=== PATIENT | male | born 1960 | race African-American/Black ===

== ENCOUNTER 2018-01-08 08:47 | Day surgery (SDC) | payer OTHER ==
[2018-01-08] VITALS (9 sets, daily range): BP systolic 134–157; BP diastolic 80–98
[~2018-01-08] VITALS: Ht 182.9 cm; Wt 108.9 kg
--- NOTE | 2018-01-08 07:08 | Pre-Procedure Note/Attestation ---
Pre-Procedure Note/Attestation Complete Prior to Procedure Planned Procedure: left Procedure Narrative: left knee scope, lateral meniscectomy, chondroplasty Indications for Procedure Pre-Operative Diagnosis: Left knee lateral meniscus tear Attestation I attest that I discussed the nature of the procedure; its benefits; risks and complications; and alternatives (and the risks and benefits of such alternatives ), prior to the procedure, with the patient (or the patient's legal treasury representative). I attest that, if there was a reasonable possibility of needing a blood transfusion, the patient (or the patient's legal treasury representative) was given the [facility] standardized written summary, pursuant to the [place] Blood Safety Act ([place] Health and Safety Code # 1645, as amended). I attest that I re-evaluated the patient just prior to the surgery and that there has been no change in the patient's H&P, except as documented below: NONE Addison Esposito MD Jan 08, 2018 07:08
[~2018-01-08 08:47] MED LIST: METFORMIN HCL850 M1 ORAL; ceFAZolin 1gm IVPB IVPB ONE; ceFAZolin sod 1 GM in D5W 55 ML IVP ONE; celeBREX 200mg Cap **SURGERY PATIENTS ONLY ORAL ONE; celeBREX 200mg Cap **SURGERY PATIENTS ONLY PO ONE; oxyCONTIN 20mg tab ORAL ONE
[2018-01-08] MEDS ORDERED: celeBREX 200mg Cap **SURGERY PATIENTS ONLY ORAL ONE (09:38)
[2018-01-08] MEDS ORDERED: HYDROmorphone 1mg/ml Carpuject SUBQ PRN (09:45)
[2018-01-08] MEDS ORDERED: D5 1/2NS 1,000 ML IV SCH (09:45)
[2018-01-08] MEDS ORDERED: Sodium Chloride 10ml vial INJ ONE (10:06)
[2018-01-08] MEDS ORDERED: Lidocaine 1% MPF 10mg/ml 5ml ONE (10:06)
[2018-01-08] MEDS ORDERED: LR 1000ml 1,000 ML IVLG SCH (10:08)
[2018-01-08] MEDS ORDERED: Ropivacaine 5mg/ml Vial 30ml INJ ONE (10:14)
[2018-01-08] MEDS ORDERED: LORazepam Inj 2mg/ml 1ml IV PRN (10:15)
[2018-01-08] MEDS ORDERED: Metoclopramide 10mg/2ml Inj IVP PRN (10:15)
[2018-01-08] MEDS ORDERED: Atropine Sulfate 0.4mg/ml inj IVP PRN (10:15)
[2018-01-08] MEDS ORDERED: Midazolam 2mg/2ml Inj IVP PRN (10:15)
[2018-01-08] MEDS ORDERED: Meperidine 50mg/ml Inj(FOR RIGORS ONLY) IVP PRN (10:15)
[2018-01-08] MEDS ORDERED: fentaNYL 100 mcg/2 mL IV PRN (10:15)
[2018-01-08] MEDS ORDERED: DiphenhydrAMINE 50mg/ml Inj IVP PRN (10:15)
[2018-01-08] MEDS ORDERED: Ketorolac 30mg Inj IV PRN ×2 (10:15)
--- NOTE | 2018-01-08 10:16 | Anethesia Preoperative Eval ---
Anesthesia Pre-op PMH/ROS General Date of Evaluation: Jan 08, 2018 Anesthesiologist: Broderick ASA Score: ASA 3 Mallampati Score Class I : Soft palate, uvula, fauces, pillars visible Class II: Soft palate, uvula, fauces visible Class III: Soft palate, base of uvula visible Class IV: Only hard plate visible Mallampati Classification: Class II Surgeon: Vaibhav Diagnosis: Left Knee Pain Surgical Procedure: Left Knee Athroscopy Anesthesia History: none Family History: no anesthesia problems Allergies: Coded Allergies: OXYCODONE (Verified Allergy, Mild, 01/08/18) ITCHING Medications: see eMAR Patient NPO?: Yes Past Medical History Cardiovascular: Reports: HTN Other: obesity - BMI 35 PSxH Narrative: R Knee Arthroscopy, Left THR Anesthesia Pre-op Phys. Exam Physician Exam Last Vital Signs Date Time Temp Pulse Resp B/P (MAP) Pulse Ox O2 Delivery O2 Flow Rate FiO2 01/08/18 09:16 97.4 68 18 135/84 95 Room Air Constitutional: NAD Neurologic: CN 2-12 intact Cardiovascular: RRR Respiratory: CTA Gastrointestinal: S/NT/ND Airway Exam Mallampati Score: Class II MO: full ROM: full Teeth: intact Anesthesia Pre-op A/P Risk Assessment & Plan Assessment: ASA 3 Plan: GA, SED Status Change Before Surgery: No Pre-Antibiotics Dru Gram Ancef IV Given Within 1 Hr of Incision: Yes Tony Villafana MD Jan 08, 2018 10:16
--- NOTE | 2018-01-08 10:17 | Immediate Post-Op Evaluation ---
Immediate Post-Op Evalulation Immediate Post-Op Evalulation Procedure: Left Knee Arthroscopy Date of Evaluation: Jan 08, 2018 Time of Evaluation: 12:05 IV Fluids: 700 LR Blood Products: 0 Estimated Blood Loss: 25 Urinary Output: 0 Blood Pressure Systolic: 157 Blood Pressure Diastolic: 91 Pulse Rate: 64 Respiratory Rate: 16 O2 Sat by Pulse Oximetry: 100 Temperature (Fahrenheit): 98.9 Pain Score (1-10): 2 Nausea: No Vomiting: No Complications 0 Patient Status: awake, reacts, patent, none Hydration Status: adequate Dru Gram Ancef IV Given Within 1 Hr of Incision: Yes Time Given: 10:41 Tony Villafana MD Jan 08, 2018 10:17
[2018-01-08] MEDS ORDERED: Midazolam 2mg/2ml Inj ONE (10:21)
[2018-01-08] MEDS ORDERED: fentaNYL 100 mcg/2 mL IV ONE (10:21)
[2018-01-08] MEDS ORDERED: NS Irrig 4000ml IRRIG ONE (10:30)
[2018-01-08] MEDS ORDERED: LR 1000ml ONE (10:30)
[2018-01-08] MEDS ORDERED: Acetaminophen (Non formulary) 100 ML IV ONE (10:30)
[2018-01-08] MEDS ORDERED: Propofol 200mg/20ml IV ONE (10:30)
--- NOTE | 2018-01-08 11:36 | Brief Operative Note ---
Immediate Post Operative Note Operative Note Chief Complaint: left knee pain Pre-op Diagnosis: left knee lateral meniscus tear Procedure: left knee scope, lateral meniscectom, chondroplasty Post-op Diagnosis: same as pre-op Findings: consistent w/pre-op dx studies Surgeon: md nadia [employer] Worker: nadeen douglass Anesthesiologist: md ej Anesthesia: general Specimen: none Complications: none Condition: stable Fluids: ns Estimated Blood Loss: minimal Drains: none Implant(s) used?: No Adriana Douglass Jan 08, 2018 11:35
--- NOTE | 2018-01-08 22:45 | Operative Note - Dictated ---
DATE OF OPERATION: 01/08/2018 PREOPERATIVE DIAGNOSES: 1. Left knee complex tear, lateral meniscus. 2. Left knee arthritis. POSTOPERATIVE DIAGNOSES: 1. Left knee large complex tear of the posterior horn and body of the lateral meniscus with a flip component. 2. Left knee significant femoral grade 4 chondral damage involving 3 x 4 cm area with unstable chondral flaps. The tibial side was intact. 3. Left knee trochlear chondral lesion measuring 2 x 3 cm central trochlear groove with unstable chondral flap. PROCEDURE: 1. Left knee arthroscopy and extensive intra-articular shaving. 2. Left knee partial lateral meniscectomy involving 35% posterior horn and body of the lateral meniscus. 3. Left knee patellofemoral as well as lateral femoral chondroplasty. SURGEON: Addison Esposito M.D. SPORTING GOODS SALES MANAGER: Adriana Delgado PA-C. Sustainability Coordinator was present during the actual operative portion of the case and was important and essential part of the operation. During the operation, the nurse practitioner physician assistant held and operated the arthroscopic camera for visualization, assisted by manipulating the leg to help with visualization, and helped with essential parts of the repair process as necessary such as operating surgical instruments under surgeon supervision, suture management, and wound closures. ANESTHESIOLOGIST: Tony Villafana M.D. ANESTHESIA: LMA anesthesia. TOURNIQUET TIME: 25 minutes. EBL: Minimal. COMPLICATIONS: None. SURGICAL INDICATION: The patient is a 57-year-old male who sustained the above injury to his knee. The patient was treated non-operative initially, but this did not alleviate the patients symptoms. Therefore, after discussing all non-surgical and surgical options, and discussing all foreseeable risk and benefits of surgery, the patient opted for surgical treatment as described above. PATIENT POSITIONING: Patient was brought to the operating room table and placed supine. All pressure points were well padded. General Anesthesia was induced and a well padded tourniquet was placed on the thigh. The lateral post was placed and positioned to allow for opening of the medial compartment of the knee without placing pressure over the fibular head. Patients entire leg was prepped and draped in the usual sterile fashion. Time out was performed and preop abx was given and after exsanguinating the lower extremity, the tourniquet was inflated to 275 mm of mercury. EXAMINATION OF THE KNEE UNDER ANESTHESIA: Before prepping and draping the knee and while the patient was relaxed under general anesthesia, the knee was examined for ROM, and anterior and posterior, medial and lateral, posterolateral, and posteromedial instability. Pivot shift testing was performed. There was no evidence of loss of motion or instability and the pivot shift testing was negative. PORTAL PLACEMENT: The lateral portal was placed with the knee flexed to 90 degrees at the level of inferior border of the patella in line with the lateral border of the patella. A cm skin incision was made with an eleven blade, and using a blunt obturator, the capsule was gently penetrated. Sterile saline solution was then infused inside the knee with the aid of a pump set at 35 mm mercury pressure. Under direct visualization, placement of the medial portal was preliminary judged using a spinal needle, and it was subsequently established using the same technique as the lateral portal. Care was given not to injure the cutaneous branches of the medial Saphenous nerve or the subcutaneous veins. DIAGNOSTIC ARTHROSCOPY: The suprapatellar patellar pouch was visualized. There was no evidence of scar tissue or loose fragments. The medial and lateral patellar facets and trochlear groove articular cartilage was visualized. There was extensive chondral damage over the central trochlear groove with some unstable chondral flaps. The medial plica shelf and the corresponding medial femoral condyle articular cartilage were visualized. There was no significantly thickening of the medial plica shelf and there were no "kissing" lesion over the medial femoral condyle. The lateral gutter and the posterolateral corner of the knee were visualized. There were no loose bodies, and the popliteus tendon and other structures of the posterolateral corner of the knee were intact intra-articularly. At this point, the knee was placed in the figure of four position and the lateral compartment was entered. The lateral femoral condyle, lateral tibial plateau, and the anterior, body, and the posterior horn of the lateral meniscus were visualized and probed. There was extensive chondral damage over the lateral femoral condyle measuring 3 x 4 cm. This was grade 4 chondromalacia. This corresponds to the area of the meniscus tear and most likely was caused by rubbing on the meniscus tearing against lateral femoral condyle. There was evidence of extensive tear of the posterior horn and body of bilateral meniscus involving 35% of the lateral meniscus. The knee was then placed at 90 degree and the ACL and PCL were visualized and probed. The ACL was completely intact on visualization and probing, and it had excellent tension. The PCL was completely intact on visualization and probing and it had excellent tension. The medial compartment was then entered and the medial femoral condyle, medial tibial plateau, and the anterior, body, and the posterior horn of the medial meniscus were visualized and probed. The articular surfaces were intact and devoid of articular cartilage damage. The medial meniscus was completely intact both on its undersurface and on the top. The medial gutter was visualized. There was no evidence of defect or loose fragments. The scope was then brought back to the patella femoral compartment. OPERATIVE ARTHROSCOPY: At this point, all loose debris and fragments were removed with the use of suction motorized shaver. Specific attention was given to assure all visible loose fragments were irrigated out of the knee joint with pump inflow and cannula outflow system. For patella femoral chondroplasty, the frayed articular cartilage of the undersurface of the patella and the trochlear groove were debrided using a motorized shaver. Suction was used to pull in the loose fragments and flaps of the cartilage and to minimize damage to the intact and well attached portion of the cartilage. This allowed for a smooth surface for the articular cartilage gliding. For lateral meniscectomy, at this point, attention was given to the lateral meniscus. Using combination of baskets and mariposa, the torn portion of the lateral meniscus was removed. Attention was given to remove all displaced and unstable portion of the lateral meniscus while maintaining as much of the functional portion of the meniscus as possible. Approximately, 35% of the posterior horn and body of the meniscus was removed in this fashion. The transition between the meniscectomy portion and intact portion of the meniscus was smoothed out with combination of small baskets and mariposa. Excellent transition zone was obtained in this fashion. For lateral compartment chondroplasty, care was given to the area of cartilage damage in the lateral compartment. The frayed and loose fragments of articular cartilage were debrided using a motorized shaver. Suction was used to pull in the loose fragments and flaps of the cartilage and to minimize damage to the intact and well attached portion of the cartilage. This allowed for smooth surfaces for the articular cartilage. CONDITION AT DISCHARGE FROM OPERATING ROOM: The knee was irrigated with copious amount of normal saline at the end of the procedure. The scope was removed and the water was drained. The skin edges were re-approximated and sterile dressing was applied. All lap count and instrument counts were correct. Patient tolerated the procedure well without complications and was taken to the recovery room in stable conditions. Addison Esposito M.D. DR: MARIMAR JOB#: [id number] CC: [id number]
== END 2018-01-08 13:50 | disposition home or self-care (01) ==
LOC: SUR 08:47
DX: M23.252 Derangement of posterior horn of lateral meniscus due to old tear or injury, left knee (principal); F17.200 Nicotine dependence, unspecified, uncomplicated; I10 Essential (primary) hypertension; E66.9 Obesity, unspecified; Z68.35 Body mass index [BMI] 35.0-35.9, adult; Z96.649 Presence of unspecified artificial hip joint; Z88.5 Allergy status to narcotic agent
CPT/HCPCS: 29881; 82962; J0690; J2250; J2405; J2704; J2795; J3010; 94003; 94150